=== PATIENT | female | born 1980 | race Caucasian/White ===

== ENCOUNTER 2021-03-23 11:32 | Inpatient (IN) | payer MEDICAID, OTHER ==
[~2021-03-23] VITALS: Ht 177.8 cm; Wt 71.8 kg
[2021-03-23 11:56] LABS: EOSINOPHILS % (AUTO) 0.5 % (1.0-6.0); HEMATOCRIT 41.1 % (36-46); HEMOGLOBIN 13.4 g/dL (12.0-16.0); LYMPHOCYTES # (AUTO) 1.1 K/uL (1.0-4.8); LYMPHOCYTES % (AUTO) 16.5 % (22.0-44.0); MEAN CORPUSCULAR HEMOGLOBIN 27.6 pg (26.0-34.0); MEAN CORPUSCULAR HGB CONC 32.6 G/dL (31.0-37.0); MEAN CORPUSCULAR VOLUME 85 fL (80-100); MONOCYTES # (AUTO) 0.7 K/uL (0.1-1.0); MONOCYTES % (AUTO) 9.7 % (2.0-9.0); NEUTROPHILS # (AUTO) 4.9 K/uL (1.8-7.7); NEUTROPHILS % (AUTO) 72.3 % (40.0-70.0); PLATELET COUNT (AUTO) 384 K/uL (150-450); RED BLOOD CELL COUNT(AUTO) 4.86 MIL/uL (4.00-5.20)
[2021-03-23 12:13] LABS: ANION GAP 6 mmol/L (8-16); CALCIUM, TOTAL 9.2 mg/dL (8.8-10.5); CARBON DIOXIDE 34 mmol/L (22-29); CHLORIDE 103 mmol/L (98-107); CREATININE 0.65 mg/dL (0.60-1.30); GLOMERULAR FILTR. RATE CALC > 60 mL/min (>60); GLUCOSE,RANDOM 103 mg/dL (70-110); POTASSIUM 4.1 mmol/L (3.5-5.1); SODIUM SERUM 143 mmol/L (136-145); UREA NITROGEN, BLOOD 8 mg/dL (7-18)
[2021-03-23 12:17] LABS: ALANINE AMINOTRANSFERASE 30 U/L (12-78); ALBUMIN 4.3 g/dL (3.4-5.0); ALKALINE PHOSPHATASE 67 U/L (46-116); ASPARTATE AMINOTRANSFERASE 21 U/L (15-37); BILIRUBIN,TOTAL 0.5 mg/dL (0.1-1.0); TOTAL PROTEIN, SERUM 7.9 g/dL (6.4-8.2)
[2021-03-23 12:58] LABS: COVID AG,FIA SOURCE NASOPHARYNGEAL
[2021-03-23] MEDS ORDERED: HALOPERIDOL 5 MG TABLET PO PRN (14:00)
[2021-03-23] MEDS ORDERED: ZOLPIDEM TARTRATE 10 MG TABLET PO PRN (14:00)
[2021-03-23] MEDS ORDERED: LORazepam 2 MG TABLET PO PRN (14:00)
[2021-03-23] MEDS ORDERED: INFLUENZA VIRUS VACCINE QVS 2021-22 (6MO+)/PF 60 MCG/0.5 ML SYRINGE IM. ONE (19:00)
[2021-03-24 05:05] VITALS: BP 112/68
[2021-03-24 07:25] LABS: CHOL/HDL RATIO 3.6 (3.9-5.7)
[2021-03-24 08:09] VITALS: BP 118/76
[2021-03-24 09:00] VITALS: BP 118/76
[2021-03-24] MEDS: ARIPiprazole 10 MG TABLET PO SCH (10:38)
[2021-03-24] MEDS ORDERED: ACETAMINOPHEN 325 MG TABLET PO PRN (12:15)
[2021-03-24] MEDS ORDERED: NICOTINE 14 MG/24 HOUR PATCH TD PRN (12:15)
[2021-03-24] MEDS ORDERED: DOCUSATE SODIUM 100 MG CAPSULE PO PRN (12:15)
[2021-03-24] MEDS ORDERED: GuaiFENesin/D-METHORPHAN [SUGAR-FREE] 200-20MG/10 ML SYRUP UDCUP PO PRN (12:15)
[2021-03-24] MEDS ORDERED: LOPERAMIDE HCL 2 MG CAPSULE PO PRN (12:15)
[2021-03-24] MEDS ORDERED: ONDANSETRON HCL 4 MG TABLET PO PRN (12:15)
[2021-03-24] MEDS ORDERED: PETROLATUM,WHITE 28 GM JELLY TP PRN (12:15)
[2021-03-24] MEDS ORDERED: MAG HYDROX/AL HYDROX/SIMETH ES 30 ML SUSPENSION UDCUP PO PRN (12:15)
[2021-03-24] MEDS ORDERED: ALBUTEROL SULFATE HFA 90 MCG/PUFF 8 GM INHALER IH PRN (12:15)
[2021-03-24] MEDS ORDERED: CloNIDine HCL 0.1 MG TABLET PO PRN (12:15)
[2021-03-24] MEDS ORDERED: MAGNESIUM HYDROXIDE SUSPENSION 30 ML UDCUP PO PRN (12:15)
[2021-03-24] MEDS ORDERED: IBUPROFEN 400 MG TABLET PO PRN (12:15)
[2021-03-24 16:22] VITALS: BP 106/75
[2021-03-25 05:44] VITALS: BP 116/72
[2021-03-25 08:20] LABS: AMPHET/METH SCREEN,URINE NEGATIVE (NEGATIVE); BARBITURATE SCREEN, URINE NEGATIVE (NEGATIVE); BENZODIAZEPINES SCREEN,URINE NEGATIVE (NEGATIVE); CANNABINOID SCREEN,URINE POSITIVE (NEGATIVE); COCAINE SCREEN,URINE NEGATIVE (NEGATIVE); METHADONE SCREEN, URINE NEGATIVE (NEGATIVE); OPIATE SCREEN,URINE NEGATIVE (NEGATIVE)
[2021-03-25 08:23] LABS: APPEARANCE,URINE TURBID (CLEAR); BILIRUBIN,URINE NEGATIVE (NEGATIVE); GLUCOSE, URINE (UA) NEGATIVE (NEGATIVE); KETONES,URINE 40 mg/dL (NEGATIVE); LEUKOCYTE ESTERASE ,URINE TRACE (NEGATIVE); NITRATE,URINE NEGATIVE (NEGATIVE); OCCULT BLOOD,URINE NEGATIVE (NEGATIVE); PROTEIN,URINE NEGATIVE (NEGATIVE); UROBILINOGEN,URINE 0.2 mg/dL (<=1.0)
[2021-03-25] MEDS: ARIPiprazole 10 MG TABLET PO SCH (08:23)
[2021-03-25 08:26] LABS: AMORPHOUS SEDIMENT,UR Many /LPF (None Seen); BACTERIA,URINE Few /HPF (None Seen); CALCIUM OXALATE CRYSTALS,UR Few /LPF (None Seen); RBC,URINE None Seen /HPF (0-2); SQUAMOUS EPITHELIAL CELL,UR Few /LPF (None Seen)
[2021-03-25 08:27] VITALS: BP 116/70
[2021-03-25 08:40] LABS: PHENCYCLIDINE SCREEN,URINE NEGATIVE (NEGATIVE)
[2021-03-25 16:40] VITALS: BP 121/73
[2021-03-26 05:41] VITALS: BP 118/72
[2021-03-26] MEDS: ARIPiprazole 10 MG TABLET PO SCH (08:23)
[2021-03-26 16:22] VITALS: BP 106/62
[2021-03-27 05:05] VITALS: BP 112/60
[2021-03-27] MEDS: ARIPiprazole 10 MG TABLET PO SCH (07:56)
[2021-03-27 08:29] VITALS: BP 122/89
[2021-03-27] MEDS ORDERED: ARIP10TA38 PO (10:02)
== END 2021-03-27 16:00 | disposition home or self-care (01) | DRG 751 ==
LOC: EMS 11:32 → B3A 14:21
PROVIDERS: ADMIT Psychiatry & Neurology Psychiatry; ATTEND Psychiatry & Neurology Psychiatry
DX: F29 Unspecified psychosis not due to a substance or known physiological condition (principal); F25.9 Schizoaffective disorder, unspecified; F10.10 Alcohol abuse, uncomplicated; F32.A Depression, unspecified; F84.0 Autistic disorder; Z20.822 Contact with and (suspected) exposure to COVID-19; G47.00 Insomnia, unspecified; K59.00 Constipation, unspecified; F60.0 Paranoid personality disorder; Y90.9 Presence of alcohol in blood, level not specified; K30 Functional dyspepsia; Z91.51 Personal history of suicidal behavior; Z23 Encounter for immunization
CPT/HCPCS: 70450; 80053; 80061; 81001; 84703; 85025; 90686; 99285; G0480